=== PATIENT | male | born 2000 | race Caucasian/White ===

== ENCOUNTER 2023-04-28 18:48 | Emergency (ER) | payer MEDICAID ==
[2023-04-28] MEDS ORDERED: cloNIDine 0.1 MG Tab PO ONE (19:18)
== END 2023-04-28 19:30 ==
LOC: EDBD 18:48 → JP.ED 18:48
DX: F11.23 Opioid dependence with withdrawal (principal); F17.210 Nicotine dependence, cigarettes, uncomplicated
CPT/HCPCS: 99284; A9270